=== PATIENT | female | born 1955 | race Caucasian/White ===

== ENCOUNTER 2023-01-12 11:27 | Outpatient (CLI) | payer OTHER | END 2023-01-12 11:30 | disposition home or self-care (01) | LOC: SONOGRAMA 11:27 | PROVIDERS: ATTEND Pathology Anatomic Pathology & Clinical Pathology | DX: D44.0 Neoplasm of uncertain behavior of thyroid gland (principal); E07.9 Disorder of thyroid, unspecified; E04.2 Nontoxic multinodular goiter ==